=== PATIENT | female | born 1955 | race Caucasian/White ===

== ENCOUNTER → 2018-12-20 | Day surgery (SDC) | payer OTHER ==
[~2018-12-20] MED LIST: ASPIRIN81 MG; ATORVASTATIN CA20 MG PO; CALCIUM; ESTRACE42.5 GM TOP; FIBER0.52 GM; LIDOCAINE HCL 2% LOCAL INJ 5 ML SDV VIAL INJ ONE; METOPROLOL SUCC50 MG PO; MIDAZOLAM HCL 2 MG/2 ML VIAL ONE; PANTOPRAZOLE SO40 MG PO; PROPOFOL IV EMULSION 10 MG/ML 50 ML VIAL ONE; TRIAMCINOLONE A15 G1; VITAMIN D31000 UNI1
--- OUTSIDE RECORDS SUMMARY | 2018-12-20 10:08 | XMS REPORT | Clinical Summary ---
Author Author [facility] Organization [facility] Address Unknown Phone Unavailable Care Team Providers Care Water Sander Name Role Phone Sharan Hendricks MD PCP Allergies Comments Active Allergy Reactions Severity Noted Date No Known Drug Allergies 02/27/2016 Medications End Date Status Medication Sig Dispensed Refills Start Date Active aspirin (ADULT LOW DOSE Take 81 mg by 0 ASPIRIN) 81 MG enteric mouth daily. coated tablet Active atorvastatin (LIPITOR) 40 Take 40 mg by 0 MG tablet mouth 6 nightly. Active Ca-D3-mag Take 2 0 jb-oneh-klw-joselin-bor tablets by 6 (CALCIUM 600-D3 PLUS) 600 mouth mg calcium- 800 unit-50 nightly. mg tablet Active metoprolol succinate XL Take 50 mg by 0 (TOPROL XL) 50 mg 24 hr mouth 6 tablet nightly. Active oxyquinoline-sod.lauryl Apply small 113.4 g 2 sulfat (TRIMO-NINO JELLY) amount to 8 0.025-0.01 % pessary gelIndications: Pelvic before organ prolapse insertion. quantification stage 1 rectocele, Pelvic organ prolapse quantification stage 2 cystocele Active ESTRACE 0.01 % (0.1 INSERT 1 GRAM 127.5 g 0 mg/gram) vaginal VAGINALLY 8 creamIndications: DAILY Atrophic vaginitis Active Lactobac no.41/Bifidobact Take by 0 no.7 (PROBIOTIC-10 ORAL) mouth. 12/23/2017 Discontinued pantoprazole (PROTONIX) 0 40 MG EC tablet 6 12/23/2017 Discontinued chlorhexidine (PERIDEX) RINSE 1/2 OZ 0 0.12 % solution BID AFTER 7 BREAKFAST AND BEDTIME AFTER BRUSHING AND FLOSSING 12/23/2017 Discontinued triamcinolone (KENALOG) Apply a small 30 g 0 0.025 % ointment amount to the 8 skin two times daily for 7 days, then decrease to once daily for 7 days. 01/08/2018 Discontinued estradiol (ESTRACE) 0.01 Insert 1 g 42.5 g 7 % (0.1 mg/gram) vaginal into the 8 creamIndications: vagina daily. 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 Vulvar itching 06/21/2017 Pelvic organ prolapse quantification stage 2 cystocele 12/15/2016 Pelvic organ prolapse quantification stage 1 rectocele 12/15/2016 Vulvar cyst 12/15/2016 Atrophic vaginitis 12/15/2016 Encounters Care Team Description Date Type Specialty Valeri Lemons MD Urethral diverticulum (Primary Dx); Prolapse of anterior vaginal wall; NOREEN (stress urinary incontinence, female); Vaginal discharge; Rectocele; Vulvar irritation 04/06/2018 Office Visit Urogynecology [place] Breast cancer screening 01/25/2018 Orders Only Obstetrics and Gynecology Nathan Stevenson MD Pelvic organ prolapse quantification stage 1 rectocele (Primary Dx); Pelvic organ prolapse quantification stage 2 cystocele; Urethral diverticulum; Vaginal pessary in situ 01/17/2018 Office Visit Obstetrics and Gynecology [place] 01/13/2018 Telephone Obstetrics and Gynecology Nathan Stevenson MD Atrophic vaginitis 01/08/2018 Refill Obstetrics and Gynecology Nathan Stevenson MD Endometrial mass; Urethral diverticulum 12/31/2017 Hospital Radiology Encounter Nathan Stevenson MD 12/31/2017 Telephone Obstetrics and Gynecology Jennifer Guy MD 12/29/2017 Anesthesia Obstetrics and Gynecology Event Nathan Stevenson MD HYSTEROSCOPY, WITH DILATION AND CURETTAGE OF UTERUS 12/29/2017 Surgery Obstetrics and Gynecology Nathan Stevenson MD Endometrial mass; Thickened endometrium 12/29/2017 Hospital Obstetrics and Gynecology Encounter Nathan Stevenson MD Preop examination 12/23/2017 Hospital Radiology Encounter Nathan Stevenson MD Preop examination 12/23/2017 Pre-Admit Pre-Admission Testing Testing Appointment Nathan Stevenson MD 12/23/2017 Telephone Gynecologic Oncology Radha Reed MA Preop examination (Primary Dx) 12/23/2017 Orders Only Obstetrics and Gynecology Radha Reed MA 12/23/2017 Telephone Obstetrics and Gynecology Nathan Stevenson MD Endometrial mass (Primary Dx); Urethral diverticulum 12/22/2017 Orders Only Obstetrics and Gynecology Nathan Stevenson MD 12/22/2017 Telephone Obstetrics and Gynecology Nathan Stevenson MD 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 Hospital Radiology Encounter Nathan Stevenson MD Well woman exam with routine gynecological exam (Primary Dx); Breast cancer screening; Screening for osteoporosis; Urethral diverticulum; Pelvic organ prolapse quantification stage 1 rectocele; Pelvic organ prolapse quantification stage 2 cystocele; Atrophic vaginitis 12/21/2017 Office Visit Obstetrics and Gynecology after 12/19/2017 Family History Medical History Relation Name Comments Cancer Father lung Heart disease Father Relation Name Status Comments Father Social History Date Tobacco Use Types Packs/Day Years Used Never Smoker Smokeless Tobacco: Never Used Alcohol Use Drinks/Week oz/Week Comments Yes 1 Standard 0.6 drinks or equivalent Sex Assigned at Date Recorded Not on file Industry Job Start Date Occupation Not on file Not on file Not on file Travel End Travel History Travel Start No recent travel history available. Last Filed Vital Signs Time Taken Vital Sign Reading 04/06/2018 2:38 PM CDT Blood Pressure 125/79 04/06/2018 2:38 PM CDT Pulse 58 04/06/2018 2:38 PM CDT Temperature 36.2 C (97.2 F) 12/29/2017 10:00 AM CDT Respiratory Rate 16 12/29/2017 10:00 AM CDT Oxygen Saturation 99% - Inhaled Oxygen - Concentration 04/06/2018 2:38 PM CDT Weight 73.5 kg (162 lb) 04/06/2018 2:38 PM CDT Height 165.1 cm (5' 5") 04/06/2018 2:38 PM CDT Body Mass Index 26.96 Plan of Treatment Health Maintenance Due Date Last Done Comments CERVICAL CANCER SCREENING 02/25/1977 COLON CANCER SCREENING 02/25/2006 SHINGLES VACCINES (#1) 02/25/2006 INFLUENZA VACCINE 04/13/2019 10/14/2018 BREAST CANCER SCREENING 01/26/2020 01/25/2018 Procedures Comments Procedure Name Priority Date/Time Associated Diagnosis NUSWAB VAGINITIS (VG) Routine 04/06/2018 Vaginal discharge 3:39 PM CDT POC URINALYSIS DIPSTICK Routine 04/06/2018 Prolapse of anterior 2:58 PM CDT vaginal wall MEASURE POST VOID Routine 04/06/2018 Prolapse of anterior RESIDUAL vaginal wall MAMMO SCREENING W CAD Routine 01/25/2018 Breast cancer screening BILATERAL 12:17 PM CDT MRI PELVIS W WO CONTRAST Routine 12/31/2017 Endometrial mass 5:01 PM CDT Urethral diverticulum SURGICAL PATHOLOGY Routine 12/29/2017 REQUEST 11:36 AM CDT [place] AN ELECTIVE Routine 12/29/2017 SUPRAGLOTTIC AIRWAY 8:25 AM CDT Procedure Note - Azeb Campbell CRNA - 12/29/2017 8:25 AM CDT Airway Date/Time: 12/29/2017 8:18 AM Performed by: AZEB CAMPBELL Authorized by: JENNIFER GUY Location: OR Urgency: Elective Difficult Airway: No Resident/C RNA/AA: AZEB CAMPBELL Performed by: resident/C RNA/AA Preoxygena lucila with 100% O2: Yes C-spine Precaution s Maintained Throughout : Yes Mask Ventilatio n: Not attempted Final Airway Type: Supraglott ic airway Final LMA: I-Gel LMA Size: 4 Number of Attempts at Approach: 1 Atraumati c; teeth and lips as they were before EXCISION, MASS OR 12/29/2017 Endometrial mass NEOPLASM, ADNEXAL, 8:00 AM CDT Thickened endometrium LAPAROSCOPIC HYSTEROSCOPY, WITH 12/29/2017 Endometrial mass DILATION AND CURETTAGE OF 8:00 AM CDT Thickened endometrium UTERUS XR CHEST 2 VW Routine 12/23/2017 Preop examination 3:40 PM CDT TYPE AND SCREEN Routine 12/23/2017 Preop examination 3:10 PM CDT ECG 12-LEAD Routine 12/23/2017 Preop examination 3:05 PM CDT ZZESTIMATED GFR Routine 12/23/2017 2:44 PM CDT COMPREHENSIVE METABOLIC Routine 12/23/2017 Preop examination PANEL 2:44 PM CDT HC COMPLETE BLD COUNT Routine 12/23/2017 Preop examination W/AUTO DIFF 2:44 PM CDT US PELVIC TRANSVAGINAL Routine 12/21/2017 Urethral diverticulum 4:43 PM CDT after 12/19/2017 Results * NuSwab Vaginitis (VG) (04/06/2018 3:39 PM CDT) Atopobium vaginae Low - 0 Score [facility] BVAB 2 Low - 0 Score [facility] Megasphaera species Low - 0 Score [facility] Comment: Calculate total score by adding the 3 individual bacterial vaginosis (BV) marker scores together.Total score is interpreted as follows: Total score 0-1: Indicates the absence of BV. Total score 2: Indeterminate for BV. Additional clinical data should be evaluated to establish a diagnosis. Total score 3-6: Indicates the presence of BV. This test was developed and its performance characteristics determined by [facility].It has not been cleared or approved by the Food and Drug Administration.The FDA has determined that such clearance or approval is not necessary. Ricarda albicans, DARRON Negative Negative [facility] C. glabrata, DNA Negative Negative [facility] Comment: This test was developed and its performance characteristics determined by [facility].It has not been cleared or approved by the Food and Drug Administration.The FDA has determined that such clearance or approval is not necessary. Trichomonas vag by DARRON Negative Negative [facility] Specimen Swab Narrative Performed At Performed at: - [id number] Pulmonary Nurse Practitioner: Jose Henderson MD, Phone:[phone] Performing Organization Address City/State/Zipcode Phone Number [facility] * POC urinalysis dipstick (04/06/2018 2:58 PM CDT) Color urine, POC Yellow Clarity urine, POC Clear Glucose urine, POC Negative Negative Bilirubin urine, POC Negative Negative Ketones urine, POC Negative Negative Specific gravity urine, 1.010 1.005 - 1.030 POC Blood urine, POC Large (A) Negative pH urine, POC 5.0 5.0, 5.5, 6.0, 6.5, 7.0, 7.5, 8.0, 8.5 Protein urine, POC Negative Negative Urobilinogen urine, POC <2.0 <2.0 Nitrite urine, POC Negative Negative Leukocyte esterase urine, Negative Negative POC Specimen Urine * Measure post void residual (04/06/2018) Total volume, urine 11 ml * Mammo Screening w Cad Bilateral (01/25/2018 12:17 PM CDT) Narrative Performed At Performing Organization Address City/State/Zipcode Phone Number [facility] [address] [place] [address] * MRI Pelvis W Wo Contrast (12/31/2017 5:01 PM CDT) Narrative Performed At [facility] EXAMINATION:MRI PELVIS W WO CONTRAST CLINICAL HISTORY:62 years 1955 N94.89 Other specified conditions associated with female genital organs and menstrual cycle, N36.1 Urethral diverticulum, Endometrial massurethral diverticulum COMPARISON:12/21/2017 TECHNIQUE: MR of the pelvis with and without intravenous gadolinium. FINDINGS: 1.Uterus measures 5.8 cm in sagittal dimension. The endometrial stripe is thin measuring 2 mm. The previously noted area of thickening of the endometrial stripe towards the fundus no longer visualized. 2.No definite uterine mass identified. 3.The ovaries are not well visualized, likely small. There is no adnexal mass. 4.No pelvic fluid. No pelvic sidewall adenopathy. 5.No definite urethral diverticulum appreciated. 6.Colonic diverticulosis. 7.No focal marrow replacing abnormality. IMPRESSION: 1.Previous area of thickening of the endometrial stripe has resolved, likely related to described history of polyp resection. Please correlate with that pathology. 2.No definite urethral diverticulum. 3.Additional findings as above. [facility]-[id number] Procedure Note Interface, Radiology Results Incoming - 12/31/2017 6:15 PM CDT EXAMINATION: MRI PELVIS W WO CONTRAST CLINICAL HISTORY: 62 years 1955 N94.89 Other specified conditions associated with female genital organs and menstrual cycle, N36.1 Urethral diverticulum, Endometrial mass urethral diverticulum COMPARISON: 12/21/2017 TECHNIQUE: MR of the pelvis with and without intravenous gadolinium. FINDINGS: 1. Uterus measures 5.8 cm in sagittal dimension. The endometrial stripe is thin measuring 2 mm. The previously noted area of thickening of the endometrial stripe towards the fundus no longer visualized. 2. No definite uterine mass identified. 3. The ovaries are not well visualized, likely small. There is no adnexal mass. 4. No pelvic fluid. No pelvic sidewall adenopathy. 5. No definite urethral diverticulum appreciated. 6. Colonic diverticulosis. 7. No focal marrow replacing abnormality. IMPRESSION: 1. Previous area of thickening of the endometrial stripe has resolved, likely related to described history of polyp resection. Please correlate with that pathology. 2. No definite urethral diverticulum. 3. Additional findings as above. [facility]-[id number] Performing Organization Address City/[facility]/Zipcode Phone Number [facility] [address] [phone] * Surgical pathology request (12/29/2017 11:36 AM CDT) [facility] DEPARTMENT OF PATHOLOGY AND GENOMIC MEDICINE Surgical pathology report See link below for PDF Lab [facility] DEPARTMENT OF Report PATHOLOGY AND GENOMIC MEDICINE Result status This is Final Report to [facility] DEPARTMENT OF [id number] PATHOLOGY AND GENOMIC MEDICINE Performing Organization Address [facility] Phone Number [facility] [address] [place] [phone] PATHOLOGY AND GENOMIC MEDICINE * XR Chest 2 Vw (12/23/2017 3:40 PM CDT) Narrative Performed At Examination: Chest 2 views [facility] CLINICAL HISTORY: Z01.818 Encounter for other preprocedural examination, preop COMPARISON: None. FINDINGS: The heart is normal in size. Mediastinum is within normal limits. IMPRESSION: Lungs are clear. Pleural surfaces are smooth. [facility]-[id number] Procedure Note Interface, Radiology Results Incoming - 12/23/2017 4:06 PM CDT Examination: Chest 2 views CLINICAL HISTORY: Z01.818 Encounter for other preprocedural examination, preop COMPARISON: None. FINDINGS: The heart is normal in size. Mediastinum is within normal limits. IMPRESSION: Lungs are clear. Pleural surfaces are smooth. [facility]-[id number] Performing Organization Address City/[facility]/Zipcode Phone Number [facility] [phone] [place] [address] * Type and screen (12/23/2017 3:10 PM CDT) ABO grouping O [facility] DEPARTMENT OF PATHOLOGY AND GENOMIC MEDICINE Rh type POS [facility] DEPARTMENT OF PATHOLOGY AND GENOMIC MEDICINE Antibody screen (gel) NEG [facility] DEPARTMENT OF PATHOLOGY AND GENOMIC MEDICINE Specimen Blood Performing Organization Address City/[facility]/Zipcode Phone Number [address] [phone] PATHOLOGY AND GENOMIC MEDICINE * ECG 12 lead (12/23/2017 3:05 PM CDT) Ventricular rate 54 [facility] MUSE Atrial rate 54 [facility]USE [place] interval 168 [facility] M[facility] QRSD interval 80 HM MUSE QT interval 414 [facility] M[facility] QTC interval 392 [facility] M[facility] P axis 1 2 [facility] M[facility] QRS axis 1 65 [facility] MUSE T wave axis 73 [facility] M[facility] EKG impression Sinus bradycardia-Septal [facility] MUSE infarct , age undetermined-Abnormal ECG-No previous ECGs available- Performing Organization Address [facility] Phone Number [facility] MUSE [address] [place] [phone] * Estimated GFR (12/23/2017 2:44 PM CDT) GFR Non Af Amer 63 mL/min/1.73 m2 [facility] DEPARTMENT OF PATHOLOGY AND GENOMIC MEDICINE GFR Af Amer 77 mL/min/1.73 m2 [facility] DEPARTMENT OF Comment: PATHOLOGY AND Chronic kidney disease: <60 GENOMIC MEDICINE mL/min/1.73m2 Kidney failure: <15 mL/min/1.73m2 The estimated GFR is calculated from the IDMS-traceable Modification of Diet in Renal Disease Equation. The accuracy of the calculation is poor when the creatinine is normal. Calculated values >90 mL/min/1.73m2 are not reported. This equation has not been validated in children (<18 years), women, the elderly (>70 years), or ethnic groups other than Caucasians and Americans. Specimen Plasma specimen Performing Organization Address City/[facility]/Zipcode Phone Number [facility] DEPARTMENT [address] [address] PATHOLOGY AND GENOMIC MEDICINE * CBC with platelet and differential (12/23/2017 2:44 PM CDT) WBC 6.42 4.50 - 11.00 k/uL [facility] DEPARTMENT OF PATHOLOGY AND GENOMIC MEDICINE RBC 4.22 4.20 - 5.50 m/uL [facility] DEPARTMENT OF PATHOLOGY AND GENOMIC MEDICINE HGB 13.1 12.0 - 16.0 g/dL [facility] DEPARTMENT OF PATHOLOGY AND GENOMIC MEDICINE HCT 42.0 37.0 - 47.0 % [facility] DEPARTMENT OF PATHOLOGY AND GENOMIC MEDICINE MCV 99.5 82.0 - 100.0 fL [facility] DEPARTMENT OF PATHOLOGY AND GENOMIC MEDICINE MCH 31.0 27.0 - 34.0 pg [facility] DEPARTMENT OF PATHOLOGY AND GENOMIC MEDICINE MCHC 31.2 31.0 - 37.0 g/dL [facility] DEPARTMENT OF PATHOLOGY AND GENOMIC MEDICINE RDW - SD 44.4 37.0 - 55.0 fL [facility] DEPARTMENT OF PATHOLOGY AND GENOMIC MEDICINE MPV 10.7 8.8 - 13.2 fL [facility] DEPARTMENT OF PATHOLOGY AND GENOMIC MEDICINE Platelet count 245 150 - 400 k/uL [facility] DEPARTMENT OF PATHOLOGY AND GENOMIC MEDICINE Nucleated RBC 0.00 /100 WBC [facility] DEPARTMENT OF PATHOLOGY AND GENOMIC MEDICINE Neutrophils 62.8 39.0 - 69.0 % [facility] DEPARTMENT OF PATHOLOGY AND GENOMIC MEDICINE Lymphocytes 27.1 25.0 - 45.0 % [facility] DEPARTMENT OF PATHOLOGY AND GENOMIC MEDICINE Monocytes 7.8 0.0 - 10.0 % [facility] DEPARTMENT OF PATHOLOGY AND GENOMIC MEDICINE Eosinophils 1.6 0.0 - 5.0 % [facility] DEPARTMENT OF PATHOLOGY AND GENOMIC MEDICINE Basophils 0.5 0.0 - 1.0 % [facility] DEPARTMENT OF PATHOLOGY AND GENOMIC MEDICINE Immature granulocytes 0.2Comment: "Immature 0.0 - 1.0 % [facility] DEPARTMENT OF granulocytes" (promyelocytes, PATHOLOGY AND myelocytes, metamyelocytes) [facility] MEDICINE Specimen Blood Performing Organization Address City/State/Zipcode Phone Number [facility] DEPARTMENT OF [address] [phone] PATHOLOGY AND GENOMIC MEDICINE * Comprehensive metabolic panel (12/23/2017 2:44 PM CDT) Sodium 141 135 - 148 mEq/L [facility] DEPARTMENT OF PATHOLOGY AND GENOMIC MEDICINE Potassium 4.5 3.5 - 5.0 mEq/L [facility] DEPARTMENT OF PATHOLOGY AND GENOMIC MEDICINE Chloride 102 98 - 112 mEq/L [facility] DEPARTMENT OF PATHOLOGY AND GENOMIC MEDICINE CO2 29 24 - 31 mEq/L [facility] DEPARTMENT OF PATHOLOGY AND GENOMIC MEDICINE Anion gap 10 7 - 15 mEq/L [facility] DEPARTMENT OF Comment: PATHOLOGY AND Starting from December GENOMIC MEDICINE , anion gap calculation no longer incorporates potassium. Please note the change. BUN 14 8 - 23 mg/dL [facility] DEPARTMENT OF PATHOLOGY AND GENOMIC MEDICINE Creatinine 0.9 0.5 - 0.9 mg/dL [facility] DEPARTMENT OF PATHOLOGY AND GENOMIC MEDICINE Glucose 72 65 - 99 mg/dL [facility] DEPARTMENT OF PATHOLOGY AND GENOMIC MEDICINE Calcium 9.8 8.8 - 10.2 mg/dL [facility] DEPARTMENT OF PATHOLOGY AND GENOMIC MEDICINE Protein 7.3 6.3 - 8.3 g/dL [facility] DEPARTMENT OF Comment: PATHOLOGY AND [place] GENOMIC MEDICINE 4.6-7.0 g/dL 1 week 4.4-7.6 g/dL 7 months-1year 5.1-7.3 g/dL 1-2 years5.6-7 .5 g/dL >3 years6.0-8 .0 g/dL 18-150 6.3-8.3 g/dL Albumin 3.9 3.5 - 5.0 g/dL [facility] DEPARTMENT OF PATHOLOGY AND GENOMIC MEDICINE A/G ratio 1.1 0.7 - 3.8 [facility] DEPARTMENT OF PATHOLOGY AND GENOMIC MEDICINE Alkaline phosphatase 71 35 - 104 U/L [facility] DEPARTMENT OF PATHOLOGY AND GENOMIC MEDICINE AST 23 10 - 35 U/L [facility] DEPARTMENT OF PATHOLOGY AND GENOMIC MEDICINE ALT 24 5 - 50 U/L [facility] DEPARTMENT OF PATHOLOGY AND GENOMIC MEDICINE Total bilirubin 0.4 0.0 - 1.2 mg/dL [facility] DEPARTMENT OF PATHOLOGY AND GENOMIC MEDICINE Specimen Plasma specimen Performing Organization Address City/State/[facility] Phone Number [facility] DEPARTMENT OF [address] [place] [address] PATHOLOGY AND GENOMIC MEDICINE * US Pelvic Transvaginal (12/21/2017 4:43 PM CDT) Narrative Performed At EXAMINATION:US PELVIC TRANSVAGINAL [facility] CLINICAL HISTORY:N36.1 Urethral diverticulum, Urethral diverticulum evaluation COMPARISON:None. TECHNIQUE:Transabdominal and transvaginal ultrasound imaging of the pelvis. FINDINGS: UTERUS:The uterus measures 7.0 x 3.9 x 5.1 cm.No focal uterine masses..The endometrial echo-complex measures 10 mm, a 2.5 x 1.2 x 1.1 cm complex region is present in the endometrial cavity in the fundus with what appears represent fluid within the fundus and endometrial thickness, neoplasm cannot be excluded OVARIES/ADNEXA:The right ovary measures 1.6 x 1.3 x 1 cm.The left ovary measures 1.5 x 0.7 x 1.0 cm.They are normal in echogenicity with normal vascularity. PELVIS:No free fluid. KIDNEYS:Sagittal image of each kidney is unremarkable. IMPRESSION: 2.5 x 1.3 cm complex mixed solid and cystic region in the endometrium near the fundus. The remainder the endometrial stripe is thickened as well measuring 1.1 cm. Endometrial neoplasm cannot be excluded. [facility]-[id number] Procedure Note [facility], Radiology Results - 12/21/2017 5:57 PM CDT EXAMINATION: US PELVIC TRANSVAGINAL CLINICAL HISTORY: N36.1 Urethral diverticulum, Urethral diverticulum evaluation COMPARISON: None. TECHNIQUE: Transabdominal and transvaginal ultrasound imaging of the pelvis. FINDINGS: UTERUS: The uterus measures 7.0 x 3.9 x 5.1 cm. No focal uterine masses.. The endometrial echo-complex measures 10 mm, a 2.5 x 1.2 x 1.1 cm complex region is present in the endometrial cavity in the fundus with what appears represent fluid within the fundus and endometrial thickness, neoplasm cannot be excluded OVARIES/ADNEXA: The right ovary measures 1.6 x 1.3 x 1 cm. The left ovary measures 1.5 x 0.7 x 1.0 cm. They are normal in echogenicity with normal vascularity. PELVIS: No free fluid. KIDNEYS: Sagittal image of each kidney is unremarkable. IMPRESSION: 2.5 x 1.3 cm complex mixed solid and cystic region in the endometrium near the fundus. The remainder the endometrial stripe is thickened as well measuring 1.1 cm. Endometrial neoplasm cannot be excluded. [facility]-[id number] Performing Organization Address City/State/Zipcode Phone Number [facility] [address] [place] [address] after 12/19/2017 Insurance Payer Benefit Subscriber ID Type Phone Address Plan / Group [facility] xxxxxxxxx HMO/PPO THCARE CHOICE/CHO ICE + Advance Directives Patient has advance care planning documents on file. For more information, linda glover contact: Augusto Perez [phone] [place] [address]
[2018-12-20 15:25] VITALS: BP 120/71
== END | disposition home or self-care (01) ==
LOC: OR 10:04
PROVIDERS: ATTEND Internal Medicine Gastroenterology
DX: Z12.11 Encounter for screening for malignant neoplasm of colon (principal); K57.30 Diverticulosis of large intestine without perforation or abscess without bleeding; K64.8 Other hemorrhoids; K62.89 Other specified diseases of anus and rectum; K21.9 Gastro-esophageal reflux disease without esophagitis; R21 Rash and other nonspecific skin eruption; I10 Essential (primary) hypertension; E78.5 Hyperlipidemia, unspecified; N20.0 Calculus of kidney; Z01.810 Encounter for preprocedural cardiovascular examination; Z79.82 Long term (current) use of aspirin
CPT/HCPCS: 45378; 93005; J2001; J2250; J2704

== ENCOUNTER → 2019-03-31 | Day surgery (SDC) | payer OTHER ==
[2019-03-28 13:59] LABS: BASOPHILS % 0.5 % (0.0-1.0); EOSINOPHILS # (AUTO) 0.2 (0.0-0.4); HEMATOCRIT 42.1 % (34.2-44.1); HEMOGLOBIN 13.6 g/dL (12.0-16.0); LYMPHOCYTES # (AUTO) 1.9 (1.0-3.2); LYMPHOCYTES % 30.9 % (18.0-39.1); MEAN CORPUSCULAR HEMOGLOBIN 31.8 pg (28-32); MEAN CORPUSCULAR HGB CONC 32.3 g/dL (31-35); MEAN CORPUSCULAR VOLUME 98.4 fL (81-99); MONOCYTES # (AUTO) 0.5 (0.2-0.8); MONOCYTES % 7.8 % (4.4-11.3); NEUTROPHILS # (AUTO) 3.6 (2.1-6.9); NEUTROPHILS % 57.6 % (38.7-80.0); PLATELET COUNT 239 x10e3/uL (140-360); RED BLOOD COUNT 4.28 x10e6/uL (3.6-5.1)
[2019-03-28 14:14] LABS: ANION GAP 11.7 mmol/L (8-16); BLOOD UREA NITROGEN 24 mg/dL (7-26); BUN/CREATININE RATIO 28 (6-25); CALCIUM 10.2 mg/dL (8.4-10.2); CARBON DIOXIDE 28 mmol/L (22-29); CHLORIDE 104 mmol/L (98-107); CREATININE, SERUM 0.86 mg/dL (0.57-1.11); EST GLOMERULAR FILTRATION RATE > 60 ML/MIN (60-); GLUCOSE 94 mg/dL (74-118); POTASSIUM 4.7 mmol/L (3.5-5.1); SODIUM 139 mmol/L (136-145)
--- NOTE | 2019-03-28 14:42 | Diagnostic Imaging Report ---
EXAMINATION: CHEST 2 VIEWS INDICATION: Pre-operative COMPARISON: None FINDINGS: TUBES and LINES: None. LUNGS: The lung volumes are normal. No focal consolidation or pulmonary edema. PLEURA: No pleural effusion or pneumothorax. HEART AND MEDIASTINUM: The cardiomediastinal silhouette is normal in size and contour. BONES AND SOFT TISSUES: No acute fracture or dislocation. UPPER ABDOMEN: No free air under the diaphragm. IMPRESSION: No focal pneumonia or pulmonary edema. Signed by: Desirae Momin MD on 03/28/2019 2:38 PM
[~2019-03-31] MED LIST changes: +BUPIVACAINE HCL 0.5% INJ 30 ML VIAL INJ ONE; +CEFAZOLIN SOD 1 GM/NS 50ML 100 ML IV ONE; +DEXAMETHASONE SOD PHOS INJ 4 MG/ML VIAL ONE; +FENTANYL CITRATE/PF 100MCG/2 ML INJ ONE; +KETOROLAC TROMETHAMINE 30 MG/ML VIAL ONE; +NEOSTIGMINE 1 MG/ML 10ML VIAL ONE; +ONDANSETRON HCL INJ 2MG/ML 2ML 2 MG/ML VIAL ONE; +PROPOFOL IV EMULSION 10 MG/ML 20 ML VIAL ONE; -PROPOFOL IV EMULSION 10 MG/ML 50 ML VIAL ONE; +SEVOFLURANE INHAL SOLN 250 ML PEN BTL ONE
--- OUTSIDE RECORDS SUMMARY | 2019-03-31 05:33 | XMS REPORT | Clinical Summary ---
Author Author [facility] Organization [facility] Address Unknown Phone Unavailable Care Team Providers Care Staff Counselor Name Role Phone Sharan Hendricks MD PCP [...] 6 nightly. Active Ca-D3-mag Take 2 0 vb-cble-nno-joselin-bor tablets by 6 (CALCIUM 600-D3 PLUS) 600 mouth mg calcium- 800 unit-50 nightly. mg tablet Active metoprolol succinate XL Take 50 mg by 0 (TOPROL XL) 50 mg 24 hr mouth 6 tablet nightly. Active ESTRACE 0.01 % (0.1 INSERT 1 GRAM 127.5 g 0 mg/gram) vaginal VAGINALLY 8 creamIndications: DAILY Atrophic vaginitis Active Lactobac no.41/Bifidobact Take by 0 no.7 (PROBIOTIC-10 ORAL) mouth. Active oxyquinoline-sod.lauryl APPLY A SMALL 113.4 g 0 sulfat (TRIMO-NINO JELLY) AMOUNT TO 9 0.025-0.01 % PESSARY gelIndications: Pelvic BEFORE organ prolapse INSERTION quantification stage 1 rectocele, Pelvic organ prolapse quantification stage 2 cystocele 02/15/2019 Discontinued oxyquinoline-sod.lauryl Apply small 113.4 g 2 sulfat (TRIMO-NINO JELLY) amount to 8 0.025-0.01 % pessary gelIndications: Pelvic before organ prolapse insertion. 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 Vulvar itching 06/21/2017 Pelvic organ prolapse quantification stage 2 cystocele 12/15/2016 Pelvic organ prolapse quantification stage 1 rectocele 12/15/2016 Vulvar cyst 12/15/2016 Atrophic vaginitis 12/15/2016 Encounters Care Team Description Date Type Specialty Nathan Stevenson MD Pelvic organ prolapse quantification stage 1 rectocele; Pelvic organ prolapse quantification stage 2 cystocele 02/15/2019 Refill Obstetrics and Gynecology Nathan Stevenson MD 01/25/2019 Orders Only Obstetrics and Gynecology Valeri Lemons MD Urethral diverticulum (Primary Dx); Prolapse of anterior vaginal wall; NOREEN (stress urinary incontinence, female); Vaginal discharge; Rectocele; Vulvar irritation 04/06/2018 Office Visit Urogynecology after 03/30/2018 Family History Medical History Relation Name Comments [...] PM CDT Temperature 36.2 C (97.2 F) - Respiratory Rate - - Oxygen Saturation - - Inhaled Oxygen - Concentration 04/06/2018 2:38 PM CDT Weight 73.5 kg (162 lb) 04/06/2018 2:38 PM CDT Height 165.1 cm (5' 5") 04/06/2018 2:38 PM CDT Body Mass Index 26.96 Plan of Treatment Health Maintenance Due Date Last Done Comments COLONOSCOPY SCREENING 02/25/2006 SHINGLES VACCINES (#1) 02/25/2006 INFLUENZA VACCINE 04/13/2019 10/14/2018 BREAST CANCER SCREENING 01/25/2021 01/25/2019, 01/25/2018 Procedures Comments Procedure Name Priority Date/Time Associated Diagnosis MAMMO BREAST SCREEN Routine 01/25/2019 TOMOSYNTHESIS BILATERAL NUSWAB VAGINITIS (VG) Routine 04/06/2018 Vaginal discharge 3:39 PM CDT POC URINALYSIS DIPSTICK Routine 04/06/2018 Prolapse of anterior 2:58 PM CDT vaginal wall MEASURE POST VOID Routine 04/06/2018 Prolapse of anterior RESIDUAL vaginal wall after 03/30/2018 Results * Mammo Breast Screen Tomosynthesis Bilateral (01/25/2019) Narrative Performed At * NuSwab Vaginitis (VG) (04/06/2018 3:39 PM CDT) Atopobium Low - 0 Score [facility] vaginae BVAB 2 Low - 0 Score [facility] Megasphaera Low - 0 Score [facility] species Comment: Calculate total score by adding the 3 individual bacterial vaginosis (BV) marker scores together.Total score is interpreted as follows: Total score 0-1: Indicates the absence of BV. Total score 2: Indeterminate for BV. Additional clinical data should be evaluated to establish a diagnosis. Total score 3-6: Indicates the presence of BV. This test was developed and its performance characteristics determined by [facility].It has not been cleared or approved by the Food and Drug Administration.The FDA has determined that such clearance or approval is not necessary. Ricarda Negative Negative [facility] albicans, DARRON C. glabrata, Negative Negative [facility] DNA Comment: This test was developed and its performance characteristics determined by [facility].It has not been cleared or approved by the Food and Drug Administration.The FDA has determined that such clearance or approval is not necessary. Trichomonas vag Negative Negative [facility] by DARRON Specimen Swab Narrative Performed At [facility] [address], [id number] Android Software Engineer: Jose Hendreson MD, Phone:[phone] Performing Organization Address City/State/Zipcode Phone Number [facility] * POC urinalysis dipstick (04/06/2018 2:58 PM CDT) Color urine, Yellow POC Clarity urine, Clear POC Glucose urine, Negative Negative POC Bilirubin Negative Negative urine, POC Ketones urine, Negative Negative POC Specific 1.010 1.005 - 1.030 gravity urine, POC Blood urine, Large (A) Negative POC pH urine, POC 5.0 5.0, 5.5, 6.0, 6.5, 7.0, 7.5, 8.0, 8.5 Protein urine, Negative Negative POC Urobilinogen <2.0 <2.0 urine, POC Nitrite urine, Negative Negative POC Leukocyte Negative Negative esterase urine, POC Specimen Urine * Measure post void residual (04/06/2018) Total volume, 11 ml urine Specimen after 03/30/2018 Insurance Type Payer Benefit Subscriber ID Effective Phone Address Plan / Dates Group HMO/PPO [facility] xxxxxxxxx [id number] THCARE resent CHOICE/CHO ICE + Advance Directives Patient has advance care planning documents on file. For more information, linda glover contact: Augusto Perez [address] [place] [address]
--- OUTSIDE RECORDS SUMMARY | 2019-03-31 05:33 | XMS REPORT ---
[facility] Address Unknown Phone Unavailable Care Team Providers Care Publicity Writer Name Role Phone JENNIFER MUELLER Unavailable Unavailable Problems This patient has no known problems. Allergies, Adverse Reactions, Alerts This patient has no known allergies or adverse reactions. Medications This patient has no known medications. Results Test Description Test Time Test Comments Text Results Atomic Results Result Comments CHEST 2 VIEWS 2019-03-28 14:37:00 [facility] [address] [address] Patient Name: ALEXI VALVERDE MR #: [id number] : 1955 Age/Sex: 64/F Req #: [id number] Adm Physician: Ordered by: JENNIFER MUELLER DPM Report #: [id number] Location: OR Room/Bed: Procedure: [id number] DX/CHEST 2 VIEWS Exam Date: 03/28/19 Exam Time: 1407 REPORT STATUS: Signed EXAMINATION: CHEST 2 VIEWS INDICATION: Pre-operative COMPARISON: None FINDINGS: TUBES and LINES: None. LUNGS: The lung volumes are normal. No focal consolidation or pulmonary edema. PLEURA: No pleural effusion or pneumothorax. HEART AND MEDIASTINUM: The cardiomediastinal silhouette is normal in size and contour. BONES AND SOFT TISSUES: No acute fracture or dislocation. UPPER ABDOMEN: No free air under the diaphragm. IMPRESSION: No focal pneumonia or pulmonary edema. Signed by: Cody Jc MD on 03/28/2019 2:38 PM Dictated By: CODY JC MD [id number] Transcribed By: SULEMA on 03/28/19 1438 COPY TO: JENNIFER MUELLER DP SCR MAMM BILATERAL CIRA CAD DIGITAL 2019-01-19 13:02:14 - SCR MAMM BILATERAL CIRA CAD DIGITALBILATERAL DIGITAL SCREENING MAMMOGRAM 3D/2D WITH CAD: 01/19/2019Digital breast tomosynthesis was performed in addition to routine CC and MLO views. Current mammographic images were evaluated by either a [employer] M-Vu or a [employer] ImageIbetorcker CAD (computer aided detection system). Comparison is made to exams dated 01/18/2018 mammogram, 12/30/2016 mammogram, 12/04/2015 mammogram, 11/16/2014 mammogram, 10/03/2013 mammogram, and 04/20/2011 mammogram - [facility]-. The tissue of both breasts is heterogeneously dense. This may lower the sensitivity of mammography. There are benign calcifications in both breasts. No suspicious mass, architectural distortion, malignant type calcification, or lymph node abnormality detected. Breast architecture is stable compared to prior exams.IMPRESSION: BENIGNThere is no mammographic evidence of malignancy. Resume annual screening mammography in one year. Camden Todd M.D. ss/penrad:01/19/2019 13:02:14 [employer] Mill Operator Tape Control: Luisa AVILA, [facility]-FWletter sent: BIRADS 1-2 Normal Mammogram BI-RADS: 2 Benign
--- NOTE | 2019-04-03 11:55 | Operative Report ---
DATE OF PROCEDURE: 03/31/2019 SURGEON: Micah Camp DPM PREOPERATIVE DIAGNOSIS: Espinosa fracture of 5th metatarsal of right foot. POSTOPERATIVE DIAGNOSIS: Espinosa fracture of 5th metatarsal of right foot. TITLE OF OPERATION: Open reduction with internal fixation of 5th metatarsal fracture of right foot. ANESTHESIA: General endotracheal. HEMOSTASIS: A right thigh tourniquet at 350 mmHg. PROCEDURE IN DETAIL: The patient was taken to the operating room in a mildly sedated state and placed upon the operating table in supine position. Following induction of general anesthetic, the right lower extremity was elevated to 60 degrees to exsanguinate before inflating the pneumatic thigh tourniquet to 350 mmHg to create hemostasis. Right lower extremity was placed upon the operating table prior to performing the following procedure. Procedure #1: Open reduction with internal fixation of 5th metatarsal of the right foot. An approximate 4 cm lateral incision was made overlying the 5th metatarsal base to mid shaft. The incision was deepened via sharp and blunt dissection to the level of the fractured nonhealing 5th metatarsal shaft. Utilizing standard technique, the fracture site was prepped with curette and elevator and a 12 mm staple was applied from dorsal lateral across the fracture line. Great compression was noted. The area was irrigated with copious amounts of sterile saline solution. Deep closure was 3-0 Vicryl, subcutaneous closure with 4-0 Vicryl, and skin closure 4-0 nylon. The areas of surgery then blocked with 0.5 Marcaine plain and a release of the pneumatic thigh tourniquet showed normal hyperemic flush to all digits of the right foot. A human tissue allograft was used to fill in the void and facilitate healing in this nonhealing fracture. HAL Castellanos/DENISSEL /[id number]
== END | disposition home or self-care (01) ==
LOC: OR 05:31
PROVIDERS: ATTEND Podiatrist Foot Surgery
DX: S92.351A Displaced fracture of fifth metatarsal bone, right foot, initial encounter for closed fracture (principal); M19.271 Secondary osteoarthritis, right ankle and foot; M79.671 Pain in right foot; Z01.810 Encounter for preprocedural cardiovascular examination; Z01.812 Encounter for preprocedural laboratory examination; Z01.811 Encounter for preprocedural respiratory examination; I10 Essential (primary) hypertension; F17.210 Nicotine dependence, cigarettes, uncomplicated; Z79.82 Long term (current) use of aspirin
CPT/HCPCS: 28485; 36415; 71046; 80048; 85025; 93005; J0690; J1100; J1885; J2001; J2250; J2405; J2704; J2710; J3010; 76000; C1762

== ENCOUNTER → 2021-06-16 | Outpatient (CLI) | payer MEDICARE ==
[~2021-06-16] MED LIST changes: -BUPIVACAINE HCL 0.5% INJ 30 ML VIAL INJ ONE; -CEFAZOLIN SOD 1 GM/NS 50ML 100 ML IV ONE; -DEXAMETHASONE SOD PHOS INJ 4 MG/ML VIAL ONE; -FENTANYL CITRATE/PF 100MCG/2 ML INJ ONE; -KETOROLAC TROMETHAMINE 30 MG/ML VIAL ONE; -LIDOCAINE HCL 2% LOCAL INJ 5 ML SDV VIAL INJ ONE; -MIDAZOLAM HCL 2 MG/2 ML VIAL ONE; -NEOSTIGMINE 1 MG/ML 10ML VIAL ONE; -ONDANSETRON HCL INJ 2MG/ML 2ML 2 MG/ML VIAL ONE; -PROPOFOL IV EMULSION 10 MG/ML 20 ML VIAL ONE; -SEVOFLURANE INHAL SOLN 250 ML PEN BTL ONE
== END ==
LOC: MRI 14:15
PROVIDERS: ATTEND Specialist
DX: M54.42 Lumbago with sciatica, left side (principal)
CPT/HCPCS: 72148